=== PATIENT | female | born 1970 | race African-American/Black ===

== ENCOUNTER → 2017-03-26 | Outpatient (CLI) | payer OTHER ==
[2016-03-23 08:56] VITALS: BP 152/82
[~2017-03-26] MED LIST: HALO5TAB PO; OXYB1PAT TD
--- NOTE | 2017-03-27 14:41 | RAD ---
DATE: 03/26/2017 EXAM: DIGITAL SCREEN BILAT W/CAD HISTORY: Asymptomatic screening mammogram. COMPARISON: Prior mammograms from 10/06/2015, 09/04/2013 and 02/08/2007 This study was interpreted with the benefit of Computerized Aided Detection (CAD). The breast parenchyma shows scattered fibroglandular densities. Breast parenchyma level B. FINDINGS: Bilateral CC and MLO views of the breasts were performed. Right breast: There are no suspicious microcalcifications, masses or areas of architectural distortion. Left breast: There is a new group of calcifications in the inner lower left breast at anterior depth. Additional imaging is recommended to include true lateral and spot compression CC and true lateral views. IMPRESSION: Incomplete left mammogram. Additional views are recommended, as above. Negative right mammogram. BI-RADS CATEGORY: 0 INCOMPLETE: NEEDS ADDITIONAL IMAGING EVALUATION AND/OR PRIOR MAMMOGRAMS FOR COMPARISON. RECOMMENDED FOLLOW-UP: ADD ADDITIONAL IMAGING PQRS compliance statement: Mammography is a sensitive method for finding small breast cancers, but it does not detect them all and is not a substitute for careful clinical examination. A negative mammogram does not negate a clinically suspicious finding and should not result in delay in biopsying a clinically suspicious abnormality. "Our facility is accredited by the [employer] Mammography Program."
== END | disposition home or self-care (01) ==
LOC: MAMMO 12:59
PROVIDERS: ATTEND Family Medicine
DX: Z12.31 Encounter for screening mammogram for malignant neoplasm of breast (principal)
CPT/HCPCS: G0202; 77067

== ENCOUNTER → 2017-04-03 | Outpatient (CLI) | payer OTHER ==
[2016-03-23 08:56] VITALS: BP 152/82
--- NOTE | 2017-04-03 12:50 | RAD ---
DATE: 04/03/2017 EXAM: DIGITAL DIAGNOSTIC LT HISTORY: Suspicious screening study COMPARISON: 03/26/2017 This study was interpreted with the benefit of Computerized Aided Detection (CAD). The breast parenchyma shows scattered fibroglandular densities. Breast parenchyma level B. FINDINGS: Additional views confirm the presence of a cluster of microcalcifications at the 7:00 location. These are pleomorphic and of mild suspicion. They are superficial in location. A tangential view of this region shows that they do not lie within the skin. IMPRESSION: Suspicious clustered left breast calcifications. Stereotactic biopsy is suggested for further evaluation. Note: The findings were discussed with the patient at the time of the exam and she understands the recommendation for biopsy. She will follow-up with the ordering physician. BI-RADS CATEGORY: 4 SUSPICIOUS ABNORMALITY- BIOPSY SHOULD BE CONSIDERED RECOMMENDED FOLLOW-UP: BIO BIOPSY RECOMMENDED PQRS compliance statement: Patient information was entered into a reminder system with a target due date for the next mammogram. Mammography is a sensitive method for finding small breast cancers, but it does not detect them all and is not a substitute for careful clinical examination. A negative mammogram does not negate a clinically suspicious finding and should not result in delay in biopsying a clinically suspicious abnormality. "Our facility is accredited by the [employer] Mammography Program."
== END | disposition home or self-care (01) ==
LOC: MAMMO 11:44
PROVIDERS: ATTEND Family Medicine
DX: R92.8 Other abnormal and inconclusive findings on diagnostic imaging of breast (principal)
CPT/HCPCS: G0206; 77065

== ENCOUNTER → 2017-04-25 | Outpatient (CLI) | payer OTHER ==
[2016-03-23 08:56] VITALS: BP 152/82
[~2017-04-25] MED LIST changes: +LIDOCAINE 1% / SOD BICARB 8.4% 20 ML VIAL. IJ ONE; +LIDOCAINE 2%/EPI 1:100,000 20 ML VIAL. IJ ONE; +METO25TA4 PO
--- NOTE | 2017-04-25 12:22 | RAD ---
EXAM: 1. Stereotactically guided biopsy of left breast microcalcifications. 2. Digital postclip left mammography. HISTORY: Indeterminate left breast microcalcifications. Stereotactic biopsy is requested. FINDINGS: The procedure along with its risks and benefits were explained to the patient. She agreed to proceed. A timeout procedure was performed. The patient's prior mammography was reviewed. The target calcifications inferomedially in the left breast were targeted stereotactically. The overlying skin was sterilely prepped and infiltrated with 1% lidocaine for local anesthesia. The deeper tissues were infiltrated with 2% lidocaine with epinephrine for local anesthesia and hemostasis. Under stereotactic guidance, a 9 gauge vacuum-assisted core biopsy system was advanced to the target calcifications. 5 core specimens were obtained. A specimen radiograph was obtained and demonstrates the targeted calcifications within the specimen. A postbiopsy clip was placed. Instrumentation was withdrawn and pressure held to hemostasis. There were no immediate complications. Digital left mammography was obtained in CC and MLO projections and interpreted on a dedicated mammographic workstation. These demonstrate the postbiopsy clip at the former site of the target calcifications, which is mostly removed. IMPRESSION: 1. Successful stereotactically guided left breast biopsy. 2. The postbiopsy clip corresponds with the target lesion.
--- NOTE | 2017-04-27 15:02 | PATHOLOGY ---
PATHOLOGY REPORT * * * * * * * * FINAL DIAGNOSIS: Fibroadipose tissue, left breast needle biopsies: - Small cystic focus of fat necrosis with chronic inflammation and dystrophic calcification. COMMENT: There is no evidence of malignancy. (JPM:; 04/27/2017) REPORT ELECTRONICALLY SIGNED BY: Barrett Decker M.D. DATE/TIME: 04/27/2017 15:01 * * * * * * * * GROSS PATHOLOGY: Received in formalin labeled "Jade Barrientos, left breast calcifications," are multiple needle cores of yellow-hardin fibrofatty tissue measuring 1.9 x 1.4 x 0.6 cm in aggregate dimensions. Also received is a plastic cassette containing multiple cores of yellow-hardin fibrofatty tissue measuring 2.6 x 1.5 x 0.7 cm in aggregate dimensions. The tissue in the cassette is transferred to cassette A3, and the remaining tissue is submitted in its entirety in cassette A1 and A2. The cold ischemic time is 5 minutes 5 minutes. The total formalin fixation time is 9 hours and 50 minutes. (TSD; 04/25/2017) INITIAL CPT CODE(S): A; 08602 Professional services performed [place] [facility] [address] Technical services performed by [facility] at [address] [place] [address], [facility] [address], [place] [address] Lagunas [facility] Radiology [phone] SPECIMEN(S) RECEIVED: A.Left breast calcifications CLINICAL HISTORY: Left breast calcifications PATIENT: AJDE BARRIENTOS /AGE: 207/25/1970 (Age: 46) PATIENT #: [id number] ALT CASE #: SPECIMEN COLLECTION DATE: 04/25/2017 SPECIMEN RECEIVED DATE: 04/25/2017 [facility] - [id number] [place] [id number] - PHONE: [phone] * * * END OF REPORT * * *
== END | disposition home or self-care (01) ==
LOC: MAMMO 10:09
PROVIDERS: ATTEND Surgery
DX: R92.1 Mammographic calcification found on diagnostic imaging of breast (principal)
CPT/HCPCS: 19085; 77022; C1713; G0206; J3490; 88305; 77065

== ENCOUNTER → 2019-05-12 | Outpatient (CLI) | payer OTHER ==
[2016-03-23 08:56] VITALS: BP 152/82
[~2019-05-12] MED LIST changes: -LIDOCAINE 1% / SOD BICARB 8.4% 20 ML VIAL. IJ ONE; -LIDOCAINE 2%/EPI 1:100,000 20 ML VIAL. IJ ONE
--- NOTE | 2019-05-14 12:23 | RAD ---
DATE: 05/12/2019 EXAM: DIGITAL SCREEN BILAT W/CAD HISTORY: Routine exam COMPARISON: 10/06/2015, 03/26/2017 mammographic exams This study was interpreted with the benefit of Computerized Aided Detection (CAD). Breast Density: SCATTERED The breast parenchyma shows scattered fibroglandular densities. Breast parenchyma level B. FINDINGS: Minimal benign calcification . No mass or distortion. No suspicious calcification. IMPRESSION: Stable BI-RADS CATEGORY: 1 NEGATIVE RECOMMENDED FOLLOW-UP: 12M 12 MONTH FOLLOW-UP PQRS compliance statement: Patient information was entered into a reminder system with a target due date for the next mammogram. Mammography is a sensitive method for finding small breast cancers, but it does not detect them all and is not a substitute for careful clinical examination. A negative mammogram does not negate a clinically suspicious finding and should not result in delay in biopsying a clinically suspicious abnormality. "Our facility is accredited by the [employer] Mammography Program."
== END | disposition home or self-care (01) ==
LOC: MAMMO 13:44
PROVIDERS: ATTEND Family Medicine
DX: Z12.31 Encounter for screening mammogram for malignant neoplasm of breast (principal); N64.89 Other specified disorders of breast
CPT/HCPCS: 77067

== ENCOUNTER → 2020-01-02 | Outpatient (CLI) | payer OTHER ==
[2016-03-23 08:56] VITALS: BP 152/82
--- NOTE | 2020-01-02 16:30 | RAD ---
EXAM: Carotid Doppler sonogram. HISTORY: Syncope. TECHNIQUE: Leslie scale and color Doppler sonographic evaluation of the neck with spectral waveform analysis was performed and static images are submitted for review. FINDINGS: The peak systolic velocity within the right common carotid artery is 98 cm/sec. The peak systolic velocity within the right internal carotid artery is 80 cm/sec and the end diastolic velocity within the right internal carotid artery is 40 cm/sec. The right ICA/CCA ratio is 0.82. The peak systolic velocity within the left common carotid artery is 110 cm/sec. The peak systolic velocity within the left internal carotid artery is 70 cm/sec and the end diastolic velocity within the left internal carotid artery is 30 cm/sec. The left ICA/CCA ratio is 0.78. There is normal antegrade flow within both vertebral arteries. IMPRESSION: No Doppler evidence of hemodynamically significant stenosis. PQRS Compliance Statement - Stenosis calculations for CT, MR and conventional angiography are based upon measurement of the distal ICA diameter in accordance with the NASCET methodology. Stenosis calculations for carotid ultrasound studies are derived from validated velocity criteria which are known to correlate with the NASCET methodology. Electronically signed by: Nayana Fiore MD (01/02/2020 4:27 PM) [id number]
== END | disposition home or self-care (01) ==
LOC: US 13:54
PROVIDERS: ATTEND Family Medicine
DX: R55 Syncope and collapse (principal)
CPT/HCPCS: 93880

== ENCOUNTER → 2020-05-17 | Outpatient (CLI) | payer OTHER ==
[2016-03-23 08:56] VITALS: BP 152/82
--- NOTE | 2020-05-18 15:22 | RAD ---
DATE: 05/17/2020 9:57 AM EXAM: DIGITAL SCREEN BILAT W/CAD HISTORY: Screening COMPARISON: 05/12/2019 Bilateral CC and MLO views of the breasts were performed. Bilateral breast tomosynthesis was performed in CC and MLO projections. This study was interpreted with the benefit of Computerized Aided Detection (CAD). FINDINGS: Breast Density: FATTY The Breast Parenchyma is primarily fatty replaced. Breast parenchyma level density A. No suspicious masses, microcalcifications or architectural distortion is present to suggest malignancy in either breast. The visualized axillae are unremarkable. IMPRESSION: No mammographic evidence of malignancy. BI-RADS CATEGORY: 1 NEGATIVE RECOMMENDED FOLLOW-UP: 12M 12 MONTH FOLLOW-UP Annual screening mammography is recommended, unless clinically indicated sooner based on symptoms or change in physical exam. PQRS compliance statement: Patient information was entered into a reminder system with a target due date for the next mammogram. Mammography is a sensitive method for finding small breast cancers, but it does not detect them all and is not a substitute for careful clinical examination. A negative mammogram does not negate a clinically suspicious finding and should not result in delay in biopsying a clinically suspicious abnormality. "Our facility is accredited by the [employer] Mammography Program."
== END ==
LOC: MAMMO 09:55
PROVIDERS: ATTEND Family Medicine
DX: Z12.31 Encounter for screening mammogram for malignant neoplasm of breast (principal)
CPT/HCPCS: 77067

== ENCOUNTER → 2021-08-08 | Outpatient (CLI) | payer OTHER ==
[2016-03-23 08:56] VITALS: BP 152/82
--- NOTE | 2021-08-08 13:02 | RAD ---
Digital Mammogram Bilateral History: Routine screening Technique: 2-D digital CC and MLO views were obtained. CAD - computer aided detection was utilize d. Comparison: Mammograms from 05/17/2020 and 05/12/2019.. Findings: Breast Tissue Density B : There are scattered areas of fibroglandular density There are no suspicious masses, malignant appearing calcifications, or areas of architectural distort ion. Impression: No evidence of malignancy. Assessment: BI-RADS Category 1: Negative. Recommendation: Routine screening mammograms. The patient will receive a letter with the results in the mail. Patient information will be entered i nto the mammography reminder system with a target recall date for the next mammogram. A reminder trini er will be generated. Electronically signed by: Vielka Chandra MD (08/08/2021 1:00 PM) [id number]
== END ==
LOC: MAMMO 12:19
PROVIDERS: ATTEND Family Medicine
DX: Z12.31 Encounter for screening mammogram for malignant neoplasm of breast (principal)
CPT/HCPCS: 77067